=== PATIENT | female | born 1975 | race American Indian/Alaskan Native ===

== ENCOUNTER 2020-11-16 10:13 | Outpatient (CLI) | payer OTHER ==
--- NOTE | 2020-12-02 14:56 | Mammography Report ---
BILATERAL DIGITAL DIAGNOSTIC MAMMOGRAM WITH CAD WITH TOMOSYNTHESIS, 11/16/2020 BILATERAL LIMITED BREAST ULTRASOUND CLINICAL INFORMATION / INDICATION: Patient states right breast lump has been present for 11 years wit h interval increase in size. ABNORMAL FINDINGS R93.89 TECHNIQUE: Digital bilateral mammographic imaging was performed. Limited ultrasound was performed. Th is examination was interpreted with the benefit of Computer-Aided Detection (CAD) analysis. COMPARISON: Despite several attempts to obtain outside prior imaging for comparison, we were unsucces sful in locating any prior mammograms. FINDINGS: Breast Density: There are scattered areas of fibroglandular density. MAMMOGRAPHIC FINDINGS: No suspicious calcifications or architectural distortion noted in either [address]. However, there is a very large well-circumscribed mass in the right breast at 12:00 measuring 10.3 x 8.7 x 7.8 cm. There is a biopsy clip in the central aspect of this mass. Additionally, there is a se cond round well-circumscribed mass in the lower inner quadrant of the right breast anterior/middle de pth measuring approximately 2.4 x 2.3 cm. There is a biopsy clip within this mass as well. Postsurgic al scars are seen in the lateral right breast, middle and posterior depth. Additionally, there are 2 small oval well-circumscribed masses in the right lateral breast, slightly posterior to the 10 cm mas s. The largest of these masses measures 14 mm in diameter. Within the left breast, there is a 13 mm oval mass in the 9:00 position, middle depth. Additionally t here is a well-circumscribed round mass measuring 8 mm in the 6:00 position of the breast anterior de pth. ULTRASOUND FINDINGS: Targeted ultrasound evaluation was performed of the area of interest. Right breast: As noted mammographically, there is a very large smoothly marginated solid mass in the right breast at 12:00. Sonographic measurement is difficult due to the large size. This mass measures 10 cm mammographically. This corresponds to the palpable lump. Additionally, there is an oval smoothly marginated solid mass at 4:00 6 cm from nipple measuring 2.2 cm in greatest diameter. This corresponds to the second mass noted mammographically containing a biop sy clip. There is an oval smoothly marginated mass in the 10:00 location, 10 cm from nipple measuring 14 mm co nsistent with oval mass noted mammographically. No abnormalities noted in the right axilla. Left breast: In the 6:00 position of the left breast 3 cm from nipple there is a solid oval smoothly marginated mass measuring 9 x 5 mm. This is consistent with benign-appearing mass noted mammographic ally in this location. Additionally, there is a oval slightly irregularly marginated mass in the 9:00 position, 9 cm from nipple measuring 12 x 7 mm. This is demonstrating posterior shadowing. There is a smaller oval solid mass at 7:00 6 cm from nipple measuring 8 x 3 mm. No abnormalities noted in the left axilla. IMPRESSION: Suspicious of malignancy 1. There is a 10 cm solid mass in the right breast at 12:00 corresponding to the palpable lump. This mass does contain a biopsy clip centrally. Without any prior mammograms or other imaging exams to doc ument potential interval increase in size or to document stability since the time of remote biopsy, I would suggest re-biopsy or surgical excision of mass. There are multiple additional benign-appearing masses in the right breast, as noted mammographically and sonographically, that can be followed with serial 6 month ultrasound exams. 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 2. There is a mass in the 9:00 position of the left breast with irregular margins and posterior shado wing. I would recommend ultrasound-guided biopsy for further evaluation. 3. Benign-appearing solid masses present in the left breast at 6:00 and 7:00. A Six-month follow-up l t breast ultrasound can be performed to establish stability. Follow up recommendation: Biopsy BI-RADS Category 4: Suspicious for Malignancy. A "normal" or negative report should not discourage follow up or biopsy of a clinically significant f inding. A written summary of these findings will be mailed to the patient. The patient will be entered into a mammography reporting system which will generate a reminder letter for the patient's next appointmen t at the appropriate interval. According to the [employer], yearly mammograms are recommended starting at age 40 and continuing as long as a woman is in good health. Breast MRI is recommended for women with an thuan roximately 20-25% or greater lifetime risk of breast cancer, including women with a strong family his tory of breast or ovarian cancer and women who have been treated for Hodgkin's disease. Signer Name: Maame Ng MD Signed: 12/02/2020 2:52 PM Workstation Name: [id number]
== END 2020-11-16 10:14 | disposition home or self-care (01) ==
LOC: SPVWC 10:13
PROVIDERS: ATTEND Surgery
DX: N63.12 Unspecified lump in the right breast, upper inner quadrant (principal); N63.14 Unspecified lump in the right breast, lower inner quadrant; N63.22 Unspecified lump in the left breast, upper inner quadrant; N63.24 Unspecified lump in the left breast, lower inner quadrant
CPT/HCPCS: 76642; 77066; G0279

== ENCOUNTER 2020-12-27 08:26 | Outpatient (CLI) | payer OTHER ==
--- NOTE | 2020-12-27 10:03 | Ultrasound Report ---
ULTRASOUND-GUIDED CORE NEEDLE BIOPSY Left BREAST WITH CLIP PLACEMENT INDICATION: Left breast mass at the 9:00 position. FINDINGS: Informed consent was obtained. The lesion within the left breast at the 9:00 position, 9 cm from the nipple, was identified with ultrasound. The overlying skin was cleansed with chloro prep and local an esthesia was obtained with a 1% lidocaine solution. Under ultrasound guidance a 14-gauge spring loade d core biopsy needle was advanced to the lesion. A total of 5 core samples were obtained. A U-shaped biopsy marker was placed to karen the site of the biopsy. Specimen samples were placed in formalin and sent to pathology for analysis. Patient tolerated the procedure well and no immediate complications were identified. A post procedure mammogram demonstrates accurate placement of the biopsy marker. IMPRESSION: Technically successful ultrasound-guided core biopsy of left breast mass at the 9:00 position with ac curate placement of a U-shaped biopsy marker. An addendum will be added to this report once pathology results are available. Signer Name: Connor Barreto MD Signed: 12/27/2020 9:59 AM Workstation Name: [id number]
--- NOTE | 2020-12-27 10:10 | Mammography Report ---
LEFT DIAGNOSTIC MAMMOGRAM INDICATION: Left breast mass at the 9:00 position. COMPARISON: 11/16/2020. FINDINGS: Left breast CC and LM projection mammograms were obtained. These document the location of a U-shaped biopsy marker at the site of a previously noted left breast 9:00 mass. IMPRESSION: Left breast mammographic images documenting accurate location of a U-shaped biopsy marker at the site of previously noted left breast 9:00 mass. BI-RADS Category 4: Suspicious for Malignancy. Signer Name: Connor Barreto MD Signed: 12/27/2020 10:05 AM Workstation Name: [id number]
== END 2020-12-27 08:27 | disposition home or self-care (01) ==
LOC: SPVWC 08:26
PROVIDERS: ATTEND Surgery
DX: R92.8 Other abnormal and inconclusive findings on diagnostic imaging of breast (principal); N63.24 Unspecified lump in the left breast, lower inner quadrant; N63.11 Unspecified lump in the right breast, upper outer quadrant; N63.14 Unspecified lump in the right breast, lower inner quadrant
CPT/HCPCS: 88305